=== PATIENT | male | born 1940 | race Caucasian/White ===

== ENCOUNTER → 2017-06-29 | Day surgery (SDC) | payer OTHER ==
[~2017-06-29] MED LIST: ELIQUIS5 MG PO; LANOXIN125 MCG PO; LOPRESSOR PO; METFORMIN PO; TAPAZOLE5 MG
--- NOTE | ~2017-06-29 | EKG ---
PATIENT: ALANNA ROCA UNIT #: [id number] Ventricular Rate: 65 BPM Atrial Rate: 74 BPM QRS Duration: 72 ms Q-T Interval: 390 ms QTC Calculation(Bezet): 405 ms Calculated R Blackburn: -13 degrees Calculated T Blackburn: -4 degrees Diagnosis Line: Atrial fibrillation Diagnosis Line: Nonspecific ST abnormality Diagnosis Line: Abnormal ECG Diagnosis Line: No previous ECGs available Diagnosis Line: Confirmed by IJEOMA CONSTANTINO MD ([id number]) on Diagnosis Line: 07/02/2017 4:39:30 PM INTERPRETING MD: MAG
--- NOTE | ~2017-06-29 | OR ---
Unit #: [id number] #: [id number] Patient: ALANNA ROCA [id number] [address] [place], [place] [address] [id number] O MR#: [id number] NAME: ALANNA ROCA ROOM: Date of Procedure: 06/29/2017 Admission Date: 06/29/2017 Surgeon: Chalo Simmons M.D. : 1940 Attending Physician: Chalo Simmons M.D. Referring Physician: Chalo Simmons M.D. Primary Care Physician: Mohit Wilcox M.D. OPERATIVE REPORT PREOPERATIVE DIAGNOSIS Right hydrocele. POSTOPERATIVE DIAGNOSIS Right hydrocele. PROCEDURE PERFORMED Right hydrocelectomy. ANESTHESIA General. DESCRIPTION OF PROCEDURE After informed consent, he was taken to the operating room, placed supine on the table under general anesthetic. His penis and scrotum were prepped and draped in the usual sterile fashion. An incision was made down the median raphe. The right scrotum was dissected free. The hydrocele sac was dissected free. It was opened and a straw colored fluid was drained from the hydrocele sac. The sac was opened and the edges were excised. It was sent to pathology for permanent analysis. Inspection of the testicle showed no mass. There was no abnormality. It had some stranding within the hydrocele sac, but there was no pus. The edges of the hydrocele sac were sewn together in an inverted fashion to prevent it from reforming. The testicle was pexy to the scrotal wall. The incision was closed in a running fashion in the multiple layers using Vicryl suture. The skin edges were approximated using Monocryl and Dermabond was placed across the incision. Marcaine was injected for local anesthetic, a total of 30 mL. All counts were correct at the end of the procedure. There was no active bleeding at the end of the procedure. The patient will be taken to recovery and will be discharged home. Dictated by... Genevieve Copeland/sepidehl TD: 06/29/2017 18:24 JOB #: [id number] CC: Mohit Wilcox M.D. Unit #: [id number] #: [id number] Patient: ALANNA ROCA OPERATIVE REPORT Page 1 of 1 X Chalo Simmons MD PROCEDURE OPERATIVE NOTE
[2017-06-29 15:36] LABS: BUN/CREATININE RATIO 23.33; CALCIUM SERUM 9.7 mg/dL (8.4-10.2); CREATININE SERUM 0.6 mg/dL (0.6-1.4); POTASSIUM 3.9 mmol/L (3.5-5.1)
== END | disposition home or self-care (01) ==
LOC: CSUR 13:56
PROVIDERS: Urology
DX: N43.3 Hydrocele, unspecified (principal); E11.9 Type 2 diabetes mellitus without complications; Z79.84 Long term (current) use of oral hypoglycemic drugs; E05.90 Thyrotoxicosis, unspecified without thyrotoxic crisis or storm; I48.91 Unspecified atrial fibrillation; I10 Essential (primary) hypertension; Z79.01 Long term (current) use of anticoagulants; Z79.899 Other long term (current) drug therapy; Z98.890 Other specified postprocedural states; Z96.653 Presence of artificial knee joint, bilateral
CPT/HCPCS: 80048; 82947; 88302; 93005; J0690; J1100; J2405; J3010